=== PATIENT | female | born 1945 | race African-American/Black ===

== ENCOUNTER 2020-01-23 13:50 | Inpatient (IN) | payer MEDICARE, MEDICAID ==
[~2020-01-23] VITALS: Ht 170.2 cm; Wt 53.6 kg
[2020-01-23 15:04] LABS: EOSINOPHILS % 1.5 % (0.0-5.0); HEMATOCRIT. 35.5 % (36.0-48.0); HEMOGLOBIN. 12.1 g/dL (12.0-16.0); LYMPHOCYTES % 25.7 % (20.0-50.0); MEAN CORPUSCULAR HEMOGLOBIN 31.7 pg (28.0-32.0); MEAN CORPUSCULAR VOLUME 93.2 fL (81.0-99.0); MEAN PLATELET VOLUME 8.1 fl (7.4-10.4); MONOCYTES % 10.1 % (2.0-8.0); NEUTROPHILS % 61.7 % (40.0-76.0); PLATELET 351 x1000/uL (130-400); RED CELL DISTRIBUTION WIDTH 18.3 % (11.6-14.6)
[2020-01-23 15:09] LABS: CHLORIDE 106 mEq/L (98-107)
[2020-01-23 16:00] LABS: CLARITY URINE CLEAR (CLEAR); COLOR URINE YELLOW (YELLOW); KETONES URINE NEGATIVE (NEGATIVE); LEUKOCYTE ESTERASE URINE NEGATIVE (NEGATIVE); NITRITE URINE NEGATIVE (NEGATIVE); OCCULT BLOOD URINE NEGATIVE (NEGATIVE); PH URINE 6.5 (4.5-8.0); PROTEIN URINE NEGATIVE (NEGATIVE); SPECIFIC GRAVITY URINE 1.019 (1.005-1.030); UROBILINOGEN URINE 0.2 E.U./dL (0.2-1.0)
[2020-01-23] MEDS ORDERED: IPRATROPIUM/ALBUTEROL 0.5-3(2.5)MG/3ML NEB HHN PRN (17:30)
[2020-01-23] MEDS ORDERED: HYDROCODONE/ACETAMINOPHEN 10/325MG TABLET PO PRN (17:30)
[2020-01-23] MEDS ORDERED: LORAZEPAM 2MG/ML CPJ IV PRN (17:30)
[2020-01-23] MEDS ORDERED: CLONIDINE 0.1MG TABLET PO PRN (17:30)
[2020-01-23] MEDS ORDERED: MAGNESIUM/ALUMINUM HYDROXIDE/SIMETHICONE 30ML UDC PO PRN (17:30)
[2020-01-23] MEDS ORDERED: ONDANSETRON HCL 4MG/2ML INJ IV PRN (17:30)
[2020-01-23] MEDS ORDERED: HYDRALAZINE 20MG/ML VIAL IV PRN (17:30)
[2020-01-23] MEDS ORDERED: DOCUSATE SODIUM 100MG CAPSULE PO PRN (17:30)
[2020-01-23] MEDS ORDERED: GUAIFENESIN 200MG/10ML SUGAR FREE UDC PO PRN (17:30)
[2020-01-23] MEDS ORDERED: ACETAMINOPHEN 325MG TABLET PO PRN (17:30)
[2020-01-23 18:09] VITALS: BP 158/84
[2020-01-23] MEDS: ENOXAPARIN 40MG/0.4ML SYR SUBCUT SCH (18:52)
[2020-01-23 20:00] VITALS: BP 136/73
[2020-01-23] MEDS ORDERED: DULO30CA52 PO (20:28)
[2020-01-23] MEDS ORDERED: AMLO5TAB88 PO (20:28)
[2020-01-23] MEDS ORDERED: DOCU250C69 PO (20:28)
[2020-01-23] MEDS ORDERED: IPRA3AMP31 IH (20:28)
[2020-01-23] MEDS ORDERED: PREG75CA PO (20:28)
[2020-01-23] MEDS ORDERED: FLUT1DIS3 IH (20:28)
[2020-01-23] MEDS ORDERED: FURO40TA5 PO (20:28)
[2020-01-23] MEDS ORDERED: PHEN50TA2 PO (20:28)
[2020-01-23] MEDS ORDERED: FERR325T6 PO (20:28)
[2020-01-23] MEDS: DIPHENHYDRAMINE 50MG/ML VIAL IV PRN (20:51)
[2020-01-23] MEDS: SODIUM CHLORIDE 0.9% INJ 3ML FLUSH IVF SCH (20:52)
[2020-01-24 00:15] VITALS: BP 128/80
[2020-01-24 00:41] LABS: CREATINE KINASE 59 IU/L (26-192)
[2020-01-24 00:42] LABS: CREATINE KINASE MB FRACTION 1.1 ng/mL (0.5-3.6)
[2020-01-24 04:30] VITALS: BP 136/82
[2020-01-24] MEDS: SODIUM CHLORIDE 0.9% INJ 3ML FLUSH IVF SCH ×3 (05:55→21:22)
[2020-01-24 08:02] VITALS: BP 137/80
[2020-01-24] MEDS: MORPHINE SULFATE 2 MG/ML CPJ (NOT FOR IM USE) IV PRN (11:42)
[2020-01-24 12:21] VITALS: BP 124/66
[2020-01-24 15:53] LABS: HEMATOCRIT. 32.2 % (36.0-48.0); HEMOGLOBIN. 10.7 g/dL (12.0-16.0); MEAN CORPUSCULAR HEMOGLOBIN 31.2 pg (28.0-32.0); MEAN CORPUSCULAR VOLUME 93.4 fL (81.0-99.0); MEAN PLATELET VOLUME 7.7 fl (7.4-10.4); PLATELET 317 x1000/uL (130-400); RED BLOOD CELL COUNT 3.45 mill/uL (4.2-5.4); RED CELL DISTRIBUTION WIDTH 17.7 % (11.6-14.6)
[2020-01-24 16:02] LABS: CHLORIDE 107 mEq/L (98-107)
[2020-01-24 16:11] LABS: CREATINE KINASE 48 IU/L (26-192)
[2020-01-24 16:13] LABS: CREATINE KINASE MB FRACTION < 1.0 ng/mL (0.5-3.6)
[2020-01-24 17:22] VITALS: BP 136/69
[2020-01-24] MEDS: ENOXAPARIN 40MG/0.4ML SYR SUBCUT SCH (18:13)
[2020-01-24 19:23] LABS: PLATELET ESTIMATE NORMAL
[2020-01-24] MEDS: DIPHENHYDRAMINE 50MG/ML VIAL IV PRN (19:48)
[2020-01-24 20:00] VITALS: BP 160/73
[2020-01-25] VITALS: BP 149/76
[2020-01-25 04:00] VITALS: BP 150/69
[2020-01-25] MEDS: SODIUM CHLORIDE 0.9% INJ 3ML FLUSH IVF SCH ×2 (07:25→13:27)
[2020-01-25 08:00] VITALS: BP 135/71
[2020-01-25] MEDS: MORPHINE SULFATE 2 MG/ML CPJ (NOT FOR IM USE) IV PRN ×2 (09:33→13:26)
[2020-01-25 12:00] VITALS: BP 115/54
[2020-01-25 16:00] VITALS: BP 101/63
[2020-01-25] MEDS: ENOXAPARIN 40MG/0.4ML SYR SUBCUT SCH (17:36)
[2020-01-25] MEDS: DIPHENHYDRAMINE 50MG/ML VIAL IV PRN (17:37)
[2020-01-25 20:29] VITALS: BP 156/68
[2020-01-26 00:04] VITALS: BP 143/70
[2020-01-26 04:00] VITALS: BP 145/71
[2020-01-26] MEDS: SODIUM CHLORIDE 0.9% INJ 3ML FLUSH IVF SCH (06:00)
[2020-01-26] MEDS: MORPHINE SULFATE 2 MG/ML CPJ (NOT FOR IM USE) IV PRN (06:54)
[2020-01-26 08:00] VITALS: BP 137/63
[2020-01-26 08:17] VITALS: BP 137/63
== END 2020-01-26 13:08 | disposition home health service (06) | DRG 143 ==
LOC: ER 14:04 → EDBEDREQ 15:18 → ENRESERV 15:54 → 6WST 18:06
PROVIDERS: ADMIT Internal Medicine; ATTEND Internal Medicine
PROC: 0B918ZZ Drainage of Trachea, Via Natural or Artificial Opening Endoscopic (ICD-10-PCS; 2020-01-23)
PROC: 0DP6XUZ Removal of Feeding Device from Stomach, External Approach (ICD-10-PCS; principal; 2020-01-25)
DX: J95.03 Malfunction of tracheostomy stoma (principal); J96.00 Acute respiratory failure, unspecified whether with hypoxia or hypercapnia; E03.9 Hypothyroidism, unspecified; J44.9 Chronic obstructive pulmonary disease, unspecified; I10 Essential (primary) hypertension; D64.9 Anemia, unspecified; F32.9 Major depressive disorder, single episode, unspecified; I50.22 Chronic systolic (congestive) heart failure; Z86.73 Personal history of transient ischemic attack (TIA), and cerebral infarction without residual deficits; Z79.899 Other long term (current) drug therapy
CPT/HCPCS: 36415; 71045; 80053; 81003; 82550; 82553; 83605; 83880; 84145; 84484; 85025; 93005; 93970; 96372; 99291; J1200; J1650; J2270